=== PATIENT | female | born 1955 | race Caucasian/White ===

== ENCOUNTER 2017-08-24 13:30 | Emergency (ER) | payer OTHER, SELFPAY | END 2017-08-24 14:44 | disposition home or self-care (01) | PROVIDERS: Emergency Provider Nurse Practitioner Family; Family Provider Internal Medicine Adolescent Medicine; Visit Provider Nurse Practitioner Family | DX: J01.00 Acute maxillary sinusitis, unspecified (principal) | CPT/HCPCS: 87804; 87880; 96372; 99201 ==

== ENCOUNTER → 2018-02-11 14:05 | Outpatient (CLI) | payer OTHER, SELFPAY ==
[2018-02-11 15:32] LABS: Alanine Aminotransferase 28 U/L (12-78); Albumin Level 4.2 gm/dL (3.4-5.0); Albumin/Globulin Ratio 1.4 (1.1-1.8); Alkaline Phosphatase 60 U/L (46-116); Anion Gap 13.8 mEq/L (5-15); Aspartate Amino Transferase 13 U/L (15-37); Bilirubin,Total 0.2 mg/dL (0.2-1.0); Blood Urea Nitrogen 16 mg/dL (7-18); Calcium 9.5 mg/dL (8.5-10.1); Carbon Dioxide 29 mmol/L (21.0-32.0); Chloride 103 mmol/L (98-107); Creatinine,Serum 0.85 mg/dL (0.55-1.02); Estimated Glomerular Filt Rate 68 ml/min (>60); GFR (African American) 82 ML/MIN (>60); Potassium 4.8 mmoL/L (3.5-5.1); Sodium 141 mmol/L (136-145); Total Protein,Serum 7.2 gm/dL (6.4-8.2)
[2018-02-11 15:58] LABS: Glucose 97 mg/dL (74-106)
== END ==
PROVIDERS: Visit Provider Internal Medicine
DX: G43.009 Migraine without aura, not intractable, without status migrainosus (principal)
CPT/HCPCS: 36415; 80053

== ENCOUNTER → 2019-02-23 13:15 | Outpatient (CLI) | payer OTHER, SELFPAY | PROVIDERS: PCP Internal Medicine Adolescent Medicine; Visit Provider Specialist | DX: G47.33 Obstructive sleep apnea (adult) (pediatric) (principal) | CPT/HCPCS: 95806 ==

== ENCOUNTER → 2019-03-02 10:47 | Outpatient (CLI) | payer OTHER, SELFPAY ==
[2019-03-02 12:25] LABS: Alanine Aminotransferase 35 U/L (12-78); Albumin/Globulin Ratio 1.3 (1.1-1.8); Alkaline Phosphatase 53 U/L (46-116); Anion Gap 13.6 mEq/L (5-15); Aspartate Amino Transferase 21 U/L (15-37); Bilirubin,Total 0.2 mg/dL (0.2-1.0); Blood Urea Nitrogen 11 mg/dL (7-18); Calcium 9.3 mg/dL (8.5-10.1); Carbon Dioxide 29 mmol/L (21.0-32.0); Chloride 103 mmol/L (98-107); Estimated Glomerular Filt Rate 72 ml/min (>60); GFR (African American) 88 ML/MIN (>60); Globulin 3.1 gm/dl (1.3-3.2); Glucose 78 mg/dL (74-106); Potassium 4.6 mmoL/L (3.5-5.1); Sodium 141 mmol/L (136-145); Total Protein,Serum 7.1 gm/dL (6.4-8.2)
[2019-03-02 14:13] LABS: Basophils % 0.4 % (0.1-2.0); Eosinophils # 0.3 K/mm3 (0.0-0.4); Eosinophils % 4.8 % (0.1-12.0); Hematocrit 45.4 % (37.0-47.0); Hemoglobin 14.2 g/dL (12.2-16.2); Lymphocytes # 1.9 K/mm3 (0.7-4.5); Lymphocytes % 30.6 % (10-50); Mean Corpuscular HGB Conc 31.3 g/dL (31.8-35.4); Mean Corpuscular Hemoglobin 30.1 pg (27.0-31.2); Mean Corpuscular Volume 96.2 fl (81-99); Monocytes # 0.3 K/mm3 (0.1-1.0); Monocytes % 4.4 % (1.7-9.3); Neutrophils # 3.8 K/mm3 (1.8-7.8); Neutrophils % 59.8 % (37.0-80.0); Platelet Count 427 K/mm3 (142-424); Red Blood Count 4.72 M/mm3 (4.20-5.40); Red Cell Distribution Width 13.1 % (11.5-17.5); White Blood Count 6.3 K/mm3 (4.8-10.8)
== END ==
PROVIDERS: Visit Provider Internal Medicine
DX: G43.009 Migraine without aura, not intractable, without status migrainosus (principal)
CPT/HCPCS: 36415; 80053; 85025

== ENCOUNTER → 2019-08-15 14:15 | Outpatient (CLI) | payer OTHER, SELFPAY | PROVIDERS: Visit Provider Specialist | DX: G47.33 Obstructive sleep apnea (adult) (pediatric) (principal) | CPT/HCPCS: 95806 ==

== ENCOUNTER → 2020-03-01 08:10 | Outpatient (CLI) | payer OTHER, SELFPAY ==
--- NOTE | 2020-03-01 08:14 | MM_ITS ---
PROCEDURE: MM DIG SCREENING MAMM BI W/CAD Digital Breast Tomosynthesis Included CLINICAL INDICATION: SCREENING There is no personal or family history of breast cancer. There have been previous biopsies on each breast for benign disease. COMPARISON: PREVIOUS EXAM from 08/14/2008 MM SCREEN MAMMOGRAM BILAT from 10/22/2011 DMSB DIG MAMM-SCREEN ALAINA from 05/03/2015 TECHNIQUE: Standard CC and MLO images and 3D Tomosynthesis was obtained. R2 CAD reviewed. FINDINGS: Prominent heterogenic fibroglandular densities are seen in both breasts slightly more prominent right breast than left. There are couple of benign-appearing calcifications in each breast. There is no significant post biopsy scarring in either breast. There is no suspicious lesion and no suspicious microcalcifications. IMPRESSION: Moderate heterogenic breast density with no suspicious lesions seen BI-RAD Category: 2 Benign Finding(s) FOLLOW-UP: 1YR 1 Year Follow-up (A letter has been sent to the patient regarding results of the study.) Dictated by: Dr. Alessandro Lomas MD 03/03/2020 08:[address] Alessandro Lomas MD in [place] 03/03/2020 08:42
== END ==
PROVIDERS: PCP Internal Medicine Adolescent Medicine; Visit Provider Internal Medicine Adolescent Medicine
DX: Z12.31 Encounter for screening mammogram for malignant neoplasm of breast (principal)
CPT/HCPCS: 77063; 77067

== ENCOUNTER → 2020-03-19 08:43 | Outpatient (CLI) | payer OTHER, SELFPAY ==
--- NOTE | 2020-03-19 | XR_ITS ---
PROCEDURE: XR DEXA AXIAL SKELETON CLINICAL HISTORY: OSTEOPOROSIS COMPARISON: No exams were available for comparison FINDINGS: The right hip BMD is 0.462 with a t-score of -3.5. The left hip BMD is 0.577 with a t-score of -3.0. The lumbar spine BMD is 0.800 with a t-score of -2.2. IMPRESSION: This patient is considered osteoporotic according to the World Health Organization criteria. Fracture risk is high. Treatment is advised. Based on these results of follow-up exam is recommended in 1 year Dictated by: Dae Cooper MD 03/19/2020 20:25 Electronically signed by aDe Cooper MD in [place] 03/20/2020 11:03
== END ==
PROVIDERS: PCP Internal Medicine Adolescent Medicine; Visit Provider Internal Medicine Adolescent Medicine
DX: M81.0 Age-related osteoporosis without current pathological fracture (principal)
CPT/HCPCS: 77080

== ENCOUNTER 2020-03-29 06:44 | Day surgery (SDC) | payer OTHER, SELFPAY ==
[2020-03-29 07:42] VITALS: BMI 20.3
[2020-03-29 08:00] VITALS: BP 121/66; PULSE 67; RESP 20; TEMP 37.3; O2SAT 100
[2020-03-29 08:39] LABS: Coronavirus 19 IgG Antibody Negative (Negative); Coronavirus 19 IgM Antibody Negative (Negative)
[2020-03-29 10:53] VITALS: O2SAT 100
--- NOTE | 2020-03-29 11:09 | HMH.ANESCL ---
[facility] Anesthesia Checklist - Patient Identification Patient Identification: Arm Band, Verbal (Name & ) - Structural Data Admitted From: Home Planned Operative Procedure/s: Colonoscopy Consent for Planned Operative Procedure(s) Verified: Yes Verified Documents: Surgical Consent, History and Physical - NPO Status Verified Time NPO: 00:00 - Chart Verification Results Verified: None - Additional verifications Anesthesia Reactions: No - Airway Assessment C-Spine Mobility Assessed: Yes TMJ Mobility Assessed: Yes Dentition: Good Dentition - Neurological Assessment Level of Consciousness: Awake, Alert, Appropriate, Follows Commands Hx Seizures: No Numbness or tingling in extremities: No - Anesthesia Plan Anesthesia Risk discussed: Yes Anesthesia Plan: Verified ASA Class: III Anesthesia Type: MAC [facility] History I have reviewed the patient's past medical history: Yes Medical History: Reports:: Hypertension, Migraine Denies:: Cancer, Diabetes Mellitus Type 1, Diabetes Mellitus Type 2, Internal Pacemaker, MRSA, Seizures *Have you ever received a pneumonia vaccine?: No *Have you received a flu vaccine this season?: Yes Other Medical History: Reports: Other Comment:: LEOPOLDO Anesthesia experience/problems:: None Laterality Cases: Bilateral: Lumpectomy Other Surgeries: Yes: Colonoscopy, Sinus Surgery. No: Pacemaker Amputation: No Fractures: No - *Social History Last grade of school completed: Some college Smoking Status: Never smoker Alcohol Intake: never Alcohol Intake Frequency:: other Substance Use Type: denies use *Occupational Status:: retired Housing: house Household Members: spouse *Travel in the last 8 weeks: Inside the [facility] Family Hx:: Diabetes, Heart Attack, Stroke
[2020-03-29 11:38] VITALS: BP 78/45; PULSE 72; RESP 18; TEMP 36.6; O2SAT 100
--- NOTE | 2020-03-29 11:39 | FL_ITS ---
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 Initially, Gastrografin enema was performed. There was no evidence annular constricting lesion or contrast extravasation. The Gastrografin was then drained and barium was instilled without complication. Barium was then allowed to drain and air introduced. There are scattered diverticula within the sigmoid colon. No annular constricting lesions or fixed polypoid filling defects are evident. There is tortuosity of the sigmoid colon. The ileocecal region has an unremarkable appearance. IMPRESSION: 1. Mild sigmoid diverticulosis with tortuous sigmoid colon. 2. No annular constricting lesions or polypoid filling defects apparent. Dictated by: Dae Cooper MD 03/29/2020 15:35 Electronically signed by Dae Cooper MD in [place] 03/29/2020 15:35
--- NOTE | 2020-03-29 11:40 | HMH.SCOPE ---
- Procedure: Date: 03/29/20 Procedure Performed:: Colonoscopy Indications:: History of colon polyps Performing Provider:: Michoacano Levin MD Referring Provider:: . Sedation:: Monitored anesthesia care Procedure:: After informed consent was obtained the patient was taken to the endoscopy suite. Sedation ensued after the patient was transferred to the left lateral decubitus position. Pulse, blood pressure, and oxygen saturation were monitored throughout the procedure. Digital rectal exam revealed no significant abnormality. The colonoscope was placed in position. The entire colon was evaluated. The colonoscope was carefully removed and the patient was transferred to recovery in stable condition. Please see findings and specimens below for detail. Findings:: Bowel preparation poor (somewhat improved with copious irrigation) Hemorrhoidal tags Severe sigmoid tortuosity Patulous sigmoid colon with lack of relaxation Scattered sigmoid diverticulosis Specimens:: None Recommendations:: Barium enema ordered secondary to severe sigmoid tortuosity and limited bowel preparation. Although bowel preparation quite poor, the likelihood of admixture with barium will allow for at least some improved visualization with particular attention to the sigmoid colon. Complications:: Limited visualization secondary to poor preparation, severe sigmoid tortuosity, and lack of relaxation. Estimated blood obtained (mL): 0
[2020-03-29 11:48] VITALS: BP 100/60; PULSE 68; RESP 18; TEMP 36.6; O2SAT 99
[2020-03-29 12:03] VITALS: BP 121/68; PULSE 76; RESP 18; TEMP 36.6; O2SAT 98
== END 2020-03-29 12:03 | disposition home or self-care (01) ==
PROVIDERS: PCP Internal Medicine Adolescent Medicine; Visit Provider Surgery
PROC: 0DJD8ZZ Inspection of Lower Intestinal Tract, Via Natural or Artificial Opening Endoscopic (ICD-10-PCS; CPT 45378; principal; 2020-03-29 11:00)
DX: Z12.11 Encounter for screening for malignant neoplasm of colon (principal); K58.9 Irritable bowel syndrome, unspecified; Z86.010 Personal history of colon polyps; K64.0 First degree hemorrhoids; Q43.8 Other specified congenital malformations of intestine; K57.30 Diverticulosis of large intestine without perforation or abscess without bleeding; Z79.899 Other long term (current) drug therapy; G43.919 Migraine, unspecified, intractable, without status migrainosus
CPT/HCPCS: 45378; 74280; 86328

== ENCOUNTER → 2021-01-30 11:34 | Outpatient (CLI) | payer OTHER, SELFPAY ==
--- NOTE | 2021-01-30 11:38 | XR_ITS ---
PROCEDURE: XR KNEE RT 4V CLINICAL INDICATION: right knee pain COMPARISON: No exams were available for comparison FINDINGS: No fracture or dislocation. No lytic or blastic change. There is normal mineralization. The joint spaces are well preserved. There is minimal spurring along the posterior aspect of the patella laterally. Other findings:None. IMPRESSION: No acute finding. Minimal osteoarthritic change at the patellofemoral joint Dictated by: Dae Cooper MD 01/30/2021 12:00 Dae Cooper MD in [place] 01/30/2021 12:00
== END ==
PROVIDERS: PCP Internal Medicine Adolescent Medicine; Visit Provider Orthopaedic Surgery
DX: M25.561 Pain in right knee (principal)
CPT/HCPCS: 73564

== ENCOUNTER → 2021-02-05 08:25 | Outpatient (CLI) | payer OTHER, SELFPAY ==
--- NOTE | 2021-02-05 08:25 | MR_ITS ---
PROCEDURE: MR KNEE RT WO CON CLINICAL INDICATION: right knee pain; evaluate for meniscal tear Rt medial knee pain x4wks. No injury. Prior x-ray 01/30/21. COMPARISON: CR XR KNEE RT 4V from 01/30/2021 TECHNIQUE: Routine multiplanar multi echo sequences are performed without gadolinium enhancement. FINDINGS: No evidence of ACL or PCL tear. There is some mild thinning of the ACL of questionable clinical significance. No edematous changes are apparent. The collateral ligaments appear intact. The patellar tendon is intact. There is some increased T1 and T2 signal involving the distal aspect of the quadriceps tendon suggesting tendinosis. There is linear increased T2 signal involving the posterior horn of the lateral meniscus but does not communicate with the articular surface and does not meet the criteria for meniscal tear. There is a horizontal tear which involves the posterior horn of the medial meniscus extending to the posterior free edge and the inferior surface of the meniscus. There is some irregularity of the patellar cartilage. There is a small knee joint effusion. There are mild osteoarthritic changes involving all 3 compartments. The medial meniscus is slightly extruded medially. No bone bruise or fracture. IMPRESSION: 1. Horizontal tear involves the posterior horn of the medial meniscus 2. Mild osteoarthritic change with small knee joint effusion. 3. Thin like appearance of the ACL which could represent sequela from an old injury. No evidence of acute ACL tear. 4. Mild irregularity of the posterior surface of the patellar cartilage which could be seen with chondromalacia patella Dictated by: Dae Cooper MD 02/07/2021 07:14 Dae Cooper MD in [place] 02/07/2021 07:14
== END ==
PROVIDERS: PCP Internal Medicine Adolescent Medicine; Visit Provider Orthopaedic Surgery
DX: M25.561 Pain in right knee (principal)
CPT/HCPCS: 73721

== ENCOUNTER → 2021-03-27 09:58 | Outpatient (CLI) | payer OTHER, SELFPAY ==
--- NOTE | 2021-03-27 10:02 | MM_ITS ---
PROCEDURE INFORMATION: Exam: MG Screening 3D Mammography Exam date and time: 03/27/2021 10:02 AM Age: 66 years old Clinical indication: Encounter for screening mammogram for malignant neoplasm of breast TECHNIQUE: Imaging protocol: Screening tomosynthesis and 2D mammography including computer-aided detection (CAD) when performed. COMPARISON: 1. MG MM DIG SCREENING MAMM BI W/CAD 03/01/2020 8:31 AM 2. MG DMSB DIG MAMM-SCREEN ALAINA 05/03/2015 3:57 PM FINDINGS: MAMMOGRAPHY: Breast composition: The breast tissue is heterogeneously dense, which may obscure small masses. Mass: None. Architectural distortion: None. Calcifications: No suspicious calcifications. Asymmetric density: None. Skin thickening: None. Axillary adenopathy: None. IMPRESSION: No mammographic evidence of malignancy. Annual screening is recommended unless otherwise clinically indicated. ASSESSMENT: BI-RADS Category 1: Negative
--- NOTE | 2021-03-27 10:35 | XR_ITS ---
PROCEDURE: XR CHEST 2V CLINICAL HISTORY: surgery 04/01/21; hypertension Preop COMPARISON: No exams were available for comparison FINDINGS: The cardiomediastinal silhouette and pulmonary vascularity are within normal limits. The lungs are clear without infiltrates, suspicious nodules, or pleural effusions. No acute bony abnormalities. IMPRESSION: No acute findings. Dictated by: Dr. Alessandro Loams MD 03/27/2021 10:52 Dr. Alessandro Lomas MD in [place] 03/27/2021 10:52
[2021-03-27 11:21] LABS: Alanine Aminotransferase 25 U/L (12-78); Albumin Level 4.7 g/dl (3.5-5.0); Albumin/Globulin Ratio 1.8 (1.1-1.8); Alkaline Phosphatase 54 U/L (38-126); Anion Gap 17.5 mEq/L (5-15); Aspartate Amino Transferase 30 U/L (14-36); Bilirubin,Total 0.4 mg/dl (0.2-1.3); Blood Urea Nitrogen 10 mg/dl (7-17); Calcium 9.9 mg/dl (8.4-10.2); Carbon Dioxide 28 mmol/L (22.0-30.0); Chloride 98 mmol/L (98-107); Estimated Glomerular Filt Rate 72 ml/min (>60); GFR (African American) 87 ML/MIN (>60); Globulin 2.6 g/dL (1.3-3.2); Glucose 79 mg/dl (74-100); Potassium 4.5 mmoL/L (3.5-5.1); Sodium 139 mmol/L (136-145); Total Protein,Serum 7.3 g/dl (6.3-8.2)
[2021-03-27 12:33] LABS: Basophils # 0.1 K/mm3 (0-0.2); Eosinophils # 0.3 K/mm3 (0.0-0.4); Eosinophils % 4.3 % (0.1-12.0); Hematocrit 43.3 % (37.0-47.0); Hemoglobin 14.8 g/dL (12.2-16.2); Lymphocytes # 2.4 K/mm3 (0.7-4.5); Lymphocytes % 31.1 % (10-50); Mean Corpuscular HGB Conc 34.1 g/dL (31.8-35.4); Mean Corpuscular Hemoglobin 31.1 pg (27.0-31.2); Mean Corpuscular Volume 91.1 fl (81-99); Mean Platelet Volume 7.5 fl (7.4-10.4); Monocytes # 0.3 K/mm3 (0.1-1.0); Monocytes % 4.5 % (1.7-9.3); Neutrophils # 4.5 K/mm3 (1.8-7.8); Neutrophils % 59.2 % (37.0-80.0); Platelet Count 382 K/mm3 (142-424); Red Blood Count 4.75 M/mm3 (4.20-5.40); Red Cell Distribution Width 13.3 % (11.5-17.5); White Blood Count 7.6 K/mm3 (4.8-10.8)
== END ==
PROVIDERS: Orthopaedic Surgery; PCP Internal Medicine Adolescent Medicine; Visit Provider Internal Medicine Adolescent Medicine
DX: Z01.818 Encounter for other preprocedural examination (principal); Z12.31 Encounter for screening mammogram for malignant neoplasm of breast
CPT/HCPCS: 36415; 71046; 77063; 77067; 80053; 85025

== ENCOUNTER → 2021-03-29 14:26 | Outpatient (CLI) | payer OTHER, SELFPAY ==
--- NOTE | 2021-03-29 14:45 | ECG_ITS ---
APPROVED REPORT Exam: Resting ECG HR:83 bpm ECG Measurements Heart Rate 83 AXES MA 136 P 67 QRSd 70 QRS 75 QT 364 T 39 QTc 427 Conclusion Normal sinus rhythm Low voltage QRS Borderline ECG Electronically signed by : Vel Dc, 03/30/2021 15:18:46
== END ==
PROVIDERS: Visit Provider Orthopaedic Surgery
DX: Z01.818 Encounter for other preprocedural examination (principal); Z20.822 Contact with and (suspected) exposure to COVID-19
CPT/HCPCS: 93005; U0003

== ENCOUNTER 2021-04-01 06:00 | Day surgery (SDC) | payer OTHER, SELFPAY ==
[2021-03-26 13:40] VITALS: BMI 20.7
[2021-04-01] VITALS (11 sets, daily range): BP systolic 112–157; BP diastolic 61–87; PULSE 72–90; RESP 12–18; TEMP 36.4–43; O2SAT 92–99
--- NOTE | 2021-04-01 07:13 | HMH.ANESCL ---
[facility] Anesthesia Checklist - Patient Identification Patient Identification: Arm Band - Structural Data Admitted From: Home Planned Operative Procedure/s: Right Knee Arthroscopy, Medial Meniscectomy/Debridement Consent for Planned Operative Procedure(s) Verified: Yes Verified Documents: Surgical Consent, History and Physical - NPO Status Verified Time NPO: 00:00 - Additional verifications Anesthesia Reactions: No - Airway Assessment C-Spine Mobility Assessed: Yes (mp3) TMJ Mobility Assessed: Yes Dentition: Good Dentition - Neurological Assessment Level of Consciousness: Awake, Alert - Anesthesia Plan Anesthesia Risk discussed: Yes Anesthesia Plan: Verified ASA Class: II Anesthesia Type: General [facility] History I have reviewed the patient's past medical history: Yes Medical History: Reports:: Hypertension, Migraine Denies:: Cancer, Diabetes Mellitus Type 1, Diabetes Mellitus Type 2, Internal Pacemaker, MRSA, Seizures *Have you ever received a pneumonia vaccine?: No *Have you received a flu vaccine this season?: Yes Other Medical History: Reports: Other (LEOPOLDO) Anesthesia experience/problems:: nac Laterality Cases: Bilateral: Lumpectomy Other Surgeries: Yes: Colonoscopy, Sinus Surgery. No: Pacemaker Amputation: No Fractures: No - *Social History Last grade of school completed: Advanced degree Smoking Status: Former smoker Alcohol Intake: never Alcohol Intake Frequency:: other Substance Use Type: denies use *Occupational Status:: retired Housing: house Household Members: spouse *Travel in the last 8 weeks: None Family Hx:: Cancer, Diabetes, Heart Attack, Hyperlipidemia, Hypertension, Stroke, Thyroid Disorder
--- NOTE | 2021-04-01 11:03 | P.PN_ITS ---
[facility] Anesthesia Record Part I Intake, IV Amount: 1,800 Estimated blood loss (mL): 0 Urine output (mL): 0 Blood Pressure: 140/68 SaO2: 92 Pulse Rate: 81 Respiratory Rate: 12 Temperature: 98.9 F Patient is:: Drowsy, Stable Stable to PACU at:: 11:00
--- NOTE | 2021-04-01 11:52 | HMH.OPNOTE ---
Date of procedure: 04/01/21 Pre-op Diagnosis:: 1. Medial meniscal tear, right knee 2. Osteoarthritis, right knee Post-op Diagnosis:: 1. Degenerative tear of medial meniscus, right knee 2. Degenerative tear of lateral meniscus, right knee 3. Osteoarthritis, right knee 4. Pathological medial plica, right knee Procedure performed:: 1. Examination of right knee under anesthesia 2. Partial medial meniscectomy, right knee 3. Partial lateral meniscectomy, right knee 4. Chondroplasty, right knee 5. Resection of medial plica, right knee Surgeon:: Kike Jackson MD DRY DIP WORKER:: [place] Anesthesia: LMA Estimated blood loss (mL): 5 Clinical Note:: The patient is a 66-year-old female with chronic right knee pain unresponsive to conservative management and evidence of a complex medial meniscal tear and early arthritic changes on imaging. Patients symptoms and clinical signs are consistent with the above diagnosis. Resection of the torn medial meniscus, chondroplasty and debridement is indicated to relieve the pain and improve function of the knee. Please refer to my office notes for full details. Operative findings:: Examination of the right knee under anesthesia, showed a stable knee joint. There is moderate knee joint effusion. Knee range of motion is from (-)5-140? of flexion. Operative findings showed diffuse grade 2-3 degenerative changes over the medial and patellofemoral compartments. There was more advanced focal grade 3-4 sales and service change leader the weightbearing area of the medial femoral condyle. The articular surfaces over the lateral compartment were relatively well-preserved. A fairly large thickened and hyperemic medial plica was noted and its corresponding abrasion area on the medial femoral condyle noted as well. The medial meniscus had a complex degenerative tear involving the body and posterior horn. In addition there was also degenerative tear of the body and anterior horn of the lateral meniscus. The anterior cruciate ligament and posterior cruciate ligaments were intact. No loose bodies were noted. Mild synovitis was noted in the knee. Operative note:: On the day of the procedure the patient was met in the preoperative area and positively identified. A physical examination was performed and documented. The operative site and side was marked and initialed by me. I again discussed the diagnosis, management options including both nonsurgical and surgical. I discussed the proposed surgical procedure, risks and benefits and alternatives in detail. The complications discussed include but are not limited to infection, injury to nerves and blood vessels, injury to the ligaments and tendons, knee stiffness, arthrofibrosis, incomplete relief, incomplete functional recovery, DVT, PE, CRPS, complications related to anesthesia including heart attack, stroke and even . I have also discussed about the likely need for further surgery in future. I told her that there were no guarantees with surgery; she could be no better or even worse. We also discussed the postoperative recovery and rehabilitation protocol. I believe the patient to be well informed with regard to the proposed surgery. I told her that it would take few months for full recovery of the knee after surgery. She expressed a full understanding and wished to proceed with the planned surgery. Patient understood the risks, agreed to proceed with surgery and no guarantees or assurances were given or implied. Patient was brought to the operating room and placed supine on the operating table. All the bony prominences were appropriately padded. A general anesthesia was administered by the lot technician. A well-padded tourniquet cuff was placed over the right upper thigh. Examination of the right knee under anesthesia was performed. A moderate amount of knee effusion was noted. Knee range of motion was 5 degrees of hyperextension to 140 degrees of flexion. Knee joint is noted to be ligamentously stable. The right k
--- NOTE | 2021-04-02 08:46 | P.PN_ITS ---
[facility] Anesthesia Record Part II Discharge Time: 11:40 Destination: Surgical Day Care (OP Surgery) PACU nurse assessment reviewed?: Yes Patient Condition:: Good Anesthesia Complications:: None Swallowing reflex intact?: Yes Cyanosis?: No Blood Pressure: 154/86 Pulse Rate: 82 Temperature: 97.0 F Mental Status: Alert & Oriented Pain level:: 0 Nausea and/or vomitting:: None Intake, IV Amount: 0
[2021-04-02 08:47] VITALS: BP 154/86; PULSE 82; TEMP 36.1
== END 2021-04-01 12:12 | disposition home or self-care (01) ==
LOC: OR 06:01
PROVIDERS: PCP Internal Medicine Adolescent Medicine; Visit Provider Orthopaedic Surgery
PROC: (CPT 29870; principal; 2021-04-01 07:30)
DX: M23.221 Derangement of posterior horn of medial meniscus due to old tear or injury, right knee (principal); I10 Essential (primary) hypertension; G43.909 Migraine, unspecified, not intractable, without status migrainosus; Z79.899 Other long term (current) drug therapy; M23.261 Derangement of other lateral meniscus due to old tear or injury, right knee; M67.51 Plica syndrome, right knee; M17.11 Unilateral primary osteoarthritis, right knee
CPT/HCPCS: 29881; 96374; J2405

== ENCOUNTER 2021-07-18 13:00 | Outpatient (RCR) | payer MEDICARE, OTHER, BC, SELFPAY ==
--- NOTE | 2021-04-23 15:30 | HMH.PTOPEV ---
PT Outpatient Evaluation Rehab PT Outpatient Evaluation Start: 04/23/21 14:31 Freq: Status: Active Protocol: Document 04/23/21 14:31 SOCRATES (Rec: 04/23/21 15:30 SOCRATES [id number]) Electronically Signed By Jeovanny Kowalski, PT 04/23/21 14:31 Outpatient Therapy Subjective History Subjective History Pt presents s/p right knee partial medial mensicectomy, lateral chondroplasty, medial plica resection on 04/01/21. Pt reports lingering post-op swelling, pain, and stiffness, however, reports 'I've been doing some exercises on my own to get it moving'. Pt reports D/C from surgeon, and PMH of migraine OLIVEROS's Chief Complaint Pain,Stiff,Swelling,Weakness Symptom Type Ache,Dull Symptoms Relieved By Rest/Positioning,Ice Symptoms Aggravated By Standing,Physical Activity, Walking Prior Functional Limitations Housework,Standing,Walking Current Functional Limitations Housework,Standing,Walking, Stairs Symptom Description Constant but Variable Level of pain today (0-10) 2 Pain scale - at its best (0-10) 2 Pain scale - at its worst (0-10) 8 Hip/Knee Eval Gait Observation General Gait Pattern Observation Antalgic Gait Assistive Device Assistive Devices None / NA Palpation Tenderness right Knee Palpation Finding Tenderness Knee Palpation Overall Comment 3/4 medial jt line, pes anserine 2/4 lateral jt line MMT Hip Flexion Strength Grade 4 Good Hip Abduction Strength Grade 4- Good- Hip Adduction Strength Grade 3+ Fair+ Hip Extension Strength Grade 4- Good- Hip External Rotation Strength Grade 4- Good- Hip Internal Rotation Strength Grade 4- Good- Knee Extension Strength Grade 4 Good Knee Flexion Strength Grade 4- Good- ROM Knee Flexion Active Range of Motion ( 2-137 degrees) Knee ROM Limitations Soft Tissue Tightness,Pain Effusion joint effusion knee exam standard right Mid - Patellar Circumerential Measure ( 34 cm) Outpatient Therapy Assessment Impairments Problems/Impairmments Palpation Tenderness,Impaired Range of Motion,Impaired Strength,Impaired Gait Pattern ,Impaired Walking,Impaired Standing,Impaired Household Care,Impaired Stair Climbing,
--- NOTE | 2021-05-21 13:44 | HMH.RHREAS ---
Rehab Reassessment Rehab OP Re-assessment Start: 05/21/21 13:15 Freq: Status: Active Protocol: Document 05/21/21 13:21 SOCRATES (Rec: 05/21/21 13:43 SOCRATES [id number]) Electronically Signed By Jeovanny Kowalski, PT 05/21/21 13:21 Rehab Re-assessment Subjective Subjective Pt reports 0-2/10 right knee pain w/activity on VAS, and feels 70-75% better overall since I eval. Objective Objective Notes AROM: RIGHT KNEE FLX 0-135 TTP: RIGHT KNEE MEDIAL JT LINE 2/4, POSTERIOR JT LINE 1-2/4 MMT: RIGHT KNEE FLX 4-4+/5, KNEE EXT 4+-5/5, R HIP ABD 4-4 +/5, R HIP FLX 4+-5/5, R HIP IR,ER 4/5 GAIT: WFL LEVEL TERRAIN W/O AD Assessment Progress Assessment Progressing as Expected Assessment Notes IMPROVED ROM, STRENGTH, TTP, AND GAIT Patient goals met STG'S 05/17 LTG'S 12/15 Goals Not Met STG'S 09/16, LTG'S 02/14 Plan Plan Pt to cont. w/skilled P.T. to [place] further improvements in AROM, strength, TTP, and gait to allow for optimal function. Frequency of Therapy 2-3x/wk Duration of therapy 3-4wks Time and Billing Re-Eval Time 15 Re-Eval Billing Units 0 PHYSICIAN CERTIFICATION: I certify the specified therapy services for Radha Rodriguez are required, authorized, and reviewed every 30 days.
--- NOTE | 2021-06-21 16:18 | HMH.RHREAS ---
Rehab Reassessment Rehab OP Re-assessment Start: 05/21/21 13:15 Freq: Status: Active Protocol: Document 06/21/21 16:10 SOCRATES (Rec: 06/21/21 16:17 SOCRATES [id number]) Electronically Signed By Jeovanny Kowalski, PT 06/21/21 16:10 Rehab Re-assessment Subjective Subjective Pt reports 0-2/10 right knee pain w/activity on VAS, and feels 80% better overall since I eval, HOWEVER, reports moderate difficulty w/ ambulation down steps d/t Right knee pain Objective Objective Notes AROM: RIGHT KNEE FLX 0-130 TTP: RIGHT KNEE MEDIAL JT LINE 1-2/4, POSTERIOR JT LINE 0-1/ 4 MMT: RIGHT KNEE FLX 4-4+/5, KNEE EXT 4+-5/5, R HIP ABD 4-4 +/5, R HIP FLX 4+-5/5, R HIP IR,ER 4-4+/5 GAIT: WFL LEVEL TERRAIN W/O AD Assessment Progress Assessment Progressing as Expected Assessment Notes improved strenght and TTP Patient goals met STG'S 05/17 LTG'S 02/14 Goals Not Met LTG'S 12/15 Plan Plan Pt to cont. w/skilled P.T. to make further improvements in AROM, strength, TTP, and gait (with emphasis on right quad eccentric control) to allow for optimal function. Frequency of Therapy 2-3x/wk Duration of therapy 2-4wks Time and Billing Re-Eval Time 15 Re-Eval Billing Units 0 PHYSICIAN CERTIFICATION: I certify the specified therapy services for Radha Rodriguez are required, authorized, and reviewed every 30 days.
== END 2021-07-18 13:05 | disposition home or self-care (01) ==
LOC: PT 13:00
PROVIDERS: PCP Internal Medicine Adolescent Medicine; Visit Provider Orthopaedic Surgery
DX: M17.11 Unilateral primary osteoarthritis, right knee (principal); M23.311 Other meniscus derangements, anterior horn of medial meniscus, right knee; M23.251 Derangement of posterior horn of lateral meniscus due to old tear or injury, right knee
CPT/HCPCS: 97010; 97014; 97016; 97033; 97035; 97110; 97163; 97164; G0283

== ENCOUNTER → 2021-12-02 13:40 | Outpatient (CLI) | payer MEDICARE, BC, SELFPAY | PROVIDERS: PCP Internal Medicine Adolescent Medicine; Visit Provider Specialist | DX: G47.33 Obstructive sleep apnea (adult) (pediatric) (principal); R06.83 Snoring; G43.719 Chronic migraine without aura, intractable, without status migrainosus | CPT/HCPCS: G0399 ==

== ENCOUNTER → 2021-12-10 09:03 | Outpatient (CLI) | payer MEDICARE, BC, SELFPAY ==
--- NOTE | 2021-12-10 09:08 | XR_ITS ---
FINAL REPORT TECHNIQUE: Bone densitometry calculations of the lumbar spine and left hip were obtained. CLINICAL HISTORY: osteoporosis FINDINGS: Using L1-4, the bone mineral density of the spine is 0.816 g/cm2, corresponding to T-score of -2.1. Using the right hip, the bone mineral density of the femoral neck is 0.454 g/cm2, corresponding to a T-score of -3.6. NOTE: T-score: Standard deviation compared with peak bone mass of young adult mean. *Following the recommendations of the International Society of Bone Densitometry, classification of hip BMD is based on the lower of two T-scores; total hip or femoral neck. IMPRESSION: Osteoporosis: Lowest T-score is at or below -2.5. This patient's T-score meets the World Health Organization criteria for osteoporosis. Reviewed, Interpreted and Dictated by Wil Kasper III, MD Transcribed by Gianna Arzola Authenticated by Wil Kasper III, MD on 12/10/2021 11:29:59 AM [facility]
== END ==
PROVIDERS: PCP Internal Medicine Adolescent Medicine; Visit Provider Internal Medicine Adolescent Medicine
DX: M81.0 Age-related osteoporosis without current pathological fracture (principal)
CPT/HCPCS: 77080

== ENCOUNTER 2022-01-13 09:28 | Emergency (ER) | payer MEDICARE, BC, SELFPAY ==
[2022-01-13 09:45] VITALS: BP 123/71; PULSE 72; RESP 18; TEMP 36.7; O2SAT 97; BMI 21.2
[2022-01-13 10:17] VITALS: BP 123/71; PULSE 72; RESP 18; TEMP 36.7; O2SAT 97
--- NOTE | 2022-01-13 10:26 | HMH.EDUTC ---
[facility] Disposition Clinical Impression: Eye problem Disposition: Home, Self-Care Condition on Discharge: Good Additional Instructions: Make sure to follow up at [facility] today at 1250 for complete eye exam and further treatment Return if needed Straight to ER if any life threatening symptoms Referrals: Vel Dc MD [Primary Care Provider] - As needed [facility] [Other] - 01/13/22 12:50 pm Medical Decision Making - Flavio Inquiry Pt receiving controlled substance: No Flavio was queried for this patient: No Vital Signs: 01/13/22 09:45 01/13/22 10:17 Temperature 98.0 F 98.0 F Temperature Source Oral Pulse Rate 72 Pulse Rate [Right Brachial] 72 Respiratory Rate 18 18 Blood Pressure 123/71 Blood Pressure [Right Arm] 123/71 Blood Pressure Mean [Right Arm] 88 Blood Pressure Source [Right Arm] Automatic Cuff Blood Pressure Position [Right Arm] Sitting 02 Sat by Pulse Oximetry 97 Oxygen Delivery Method Room Air - Physician Consults Physician Consulted: [facility] Time: 10:31 Reason -: Opthalmology Eval/Care Comment/Response: Spoke with [facility] and informed them of patient complaints and they advised they would see her in the office today at 1250 [facility] HPI - General Stated complaint: eye pain/redness Time Seen by Provider: 01/13/22 10:26 Mode of Arrival: Ambulatory Source of Information: Patient Limitations: No Limitations Description of Symptoms (Recalled from Triage Doc. by RN): PATIENT C/O REDNESS AND BURNING TO BILATERAL EYES SINCE YESTERDAY, AND STATES HER VISION IS FUZZY . NO KNOWN INJURY HEENT Symptoms (Recalled from RN notes): Yes Resp Symptoms (Recalled from RN notes): No Skin Symptoms (Recalled from RN notes): No MS Symptoms (Recalled from RN notes): No Functional Status (Recalled from RN notes): WNL - History of Present Illness Provider Complaint: Patient state that she tried to put her contacts in yesterday and her eyes started burning and watering States that since then it feels like there is sandpaper in her eyes States that they are red and watering and feel itchy and irritated States she has been having trouble seeing and everything looks fuzzy so this morning she came in to get checked - Related Data Home Medications Medication Instructions Recorded Confirmed fluticasone propionate 50 50 mcg INTRANASAL DAILY #16 g 08/15/19 12/12/21 mcg/actuation nasal spray,suspension ibandronate 150 mg tablet 150 mg PO NEEDED PRN #1 tab 08/15/19 12/12/21 lamotrigine 150 mg tablet 150 mg PO DAILY #90 tab 08/15/19 12/12/21 methocarbamol 500 mg tablet 500 mg PO DAILY #40 tab 08/15/19 12/12/21 metoprolol tartrate 50 mg tablet 50 mg PO DAILY #90 tab 08/15/19 12/12/21 rizatriptan 10 mg tablet 10 mg PO DAILYP PRN #12 tab 08/15/19 12/12/21 venlafaxine 75 mg capsule,extended 75 mg PO DAILY #90 cap 08/15/19 12/12/21 release 24 hr Lidocaine [Lidoderm 5% transdermal 1 each TP Q24H 03/26/21 12/12/21 patch] pseudoephedrine HCl 30 mg tablet 30 mg PO Q4-6H PRN 04/23/21 12/12/21 atorvastatin 40 mg tablet 40 mg PO HS tab 11/27/21 12/12/21 levetiracetam 500 mg tablet 500 mg PO DAILY tab 11/27/21 12/12/21 atogepant 60 mg tablet 60 mg PO DAILY 12/12/21 12/12/21 Allergies Allergy/AdvReac Type Severity Reaction Status Date / Time topiramate [From Topamax] AdvReac Mild Verified 12/12/21 11:01 - Worker's Comp Is this a Worker's Comp case?: No [facility] History - Hepatitis A Screen Attestation statement:: This patient has been screened for Hepatitis A risk factors. I have reviewed the patient's past medical history: Yes Medical History: Reports:: Hypertension, Migraine, Osteoporosis Denies:: Cancer, Diabetes Mellitus Type 1, Diabetes Mellitus Type 2, Internal Pacemaker, MRSA, Seizures Other Medical History: Reports: Arthritis, Osteoporosis, Other Comment: LEOPOLDO Laterality Cases: Right: Arthroscopy Knee, Bilateral: Lumpectomy, Tonsille
== END 2022-01-13 10:44 | disposition home or self-care (01) ==
PROVIDERS: Emergency Provider Nurse Practitioner; PCP Internal Medicine Adolescent Medicine
DX: H57.13 Ocular pain, bilateral; H53.8 Other visual disturbances; Z88.8 Allergy status to other drugs, medicaments and biological substances; I10 Essential (primary) hypertension; G43.909 Migraine, unspecified, not intractable, without status migrainosus; M81.0 Age-related osteoporosis without current pathological fracture; G47.33 Obstructive sleep apnea (adult) (pediatric); Z80.9 Family history of malignant neoplasm, unspecified; Z82.49 Family history of ischemic heart disease and other diseases of the circulatory system; Z83.438 Family history of other disorder of lipoprotein metabolism and other lipidemia; Z83.49 Family history of other endocrine, nutritional and metabolic diseases; Z82.3 Family history of stroke
CPT/HCPCS: 99281

== ENCOUNTER → 2022-01-22 11:33 | Outpatient (CLI) | payer MEDICARE, BC, SELFPAY | PROVIDERS: PCP Internal Medicine Adolescent Medicine; Visit Provider Specialist | DX: G47.33 Obstructive sleep apnea (adult) (pediatric) (principal); R06.83 Snoring | CPT/HCPCS: G0399 ==

== ENCOUNTER → 2023-01-19 10:53 | Outpatient (CLI) | payer MEDICARE, BC, SELFPAY ==
--- NOTE | 2023-01-19 10:57 | MM_ITS ---
PROCEDURE INFORMATION: Exam: MG Bilateral Screening 3D Mammography Exam date and time: 01/19/2023 10:55 AM Age: 67 years old Clinical indication: Screening examination TECHNIQUE: Imaging protocol: Bilateral Screening tomosynthesis and 2D mammography including computer-aided detection (CAD) when performed. COMPARISON: 1. MG MM DIG SCREENING MAMM BI W/CAD 03/27/2021 10:00 AM 2. MG MM DIG SCREENING MAMM BI W/CAD 03/01/2020 8:31 AM FINDINGS: MAMMOGRAPHY: Breast composition: The breasts are heterogeneously dense, which may obscure small masses. Mass: None. Architectural distortion: None. Calcifications: No suspicious calcifications. Asymmetric density: None. Skin thickening: None. Axillary adenopathy: None. IMPRESSION: No mammographic evidence of malignancy. Annual screening is recommended unless otherwise clinically indicated. ASSESSMENT: BI-RADS Category 1: Negative
== END ==
PROVIDERS: PCP Internal Medicine Adolescent Medicine; Visit Provider Internal Medicine Adolescent Medicine
DX: Z12.31 Encounter for screening mammogram for malignant neoplasm of breast (principal)
CPT/HCPCS: 77063; 77067

== ENCOUNTER 2023-03-10 10:53 | Emergency (ER) | payer MEDICARE, BC, SELFPAY ==
[2023-03-10 10:54] VITALS: BP 129/73; PULSE 63; RESP 18; TEMP 36.9; O2SAT 98; BMI 21.1
--- NOTE | 2023-03-10 11:16 | EXP.UTC ---
Discharge Plan Disposition Patient Disposition: Home, Self-Care Condition: Good Prescriptions Prescriptions: New amoxicillin 500 mg capsule 500 mg PO Q8H 7 Days Qty: 21 0RF No Action pseudoephedrine HCl [Sudafed] 30 mg tablet 30 mg PO Q4-6H PRN Rx Instructions: DNExceed 4 doses/24h Ubrelvy 100 mg tablet 100 mg PO PRN magnesium chloride 64 mg tablet extended release 64 mg PO DAILY biotin 10,000 mcg capsule PO DAILY diphenhydramine HCl [Benadryl] 25 mg capsule 25 mg PO HS PRN multivitamin Tablet 1 tab PO DAILY cetirizine [Zyrtec] 10 mg tablet 10 mg PO DAILY rizatriptan 10 mg tablet 10 mg PO DAILYP PRN (Reason: .) Qty: 12 fluticasone propionate 50 mcg/actuation spray,suspension 50 mcg INTRANASAL DAILY Qty: 16 methocarbamol 500 mg tablet 500 mg PO DAILY Qty: 40 metoprolol tartrate 50 mg tablet 50 mg PO DAILY Qty: 90 venlafaxine 75 mg capsule,extended release 24hr 75 mg PO DAILY Qty: 90 lamotrigine 150 mg tablet 150 mg PO DAILY Qty: 90 atorvastatin 40 mg tablet 40 mg PO HS levetiracetam 500 mg tablet 250 mg PO BID Qulipta 60 mg tablet 60 mg PO DAILY alendronate 70 mg tablet 70 mg PO WEEKLY Patient Comments: TAKE ONE TABLET BY MOUTH ONCE a WEEK omeprazole magnesium 20 mg tablet,delayed release (DR/EC) 20 mg PO DAILY lidocaine 1 EACH adhesive patch,medicated 1 each TP Q24H Referrals Follow up/Referrals: Vel Dc MD [Primary Care Provider] - See instructions Activity Restrictions/Add. Instructions Additional Instructions/Restrictions: Use dental balls for pain as you was instructed in the [facility] today Take oral Amoxicillin as prescribed Follow up with your Dentist as soon as possible for furter evaluation and treatment Return if needed Clinical Impressions Clinical Impression: Dental infection Instructions Patient Instructions: DI for Dental Pain, DI for Tooth Abscess, Tooth Abscess Discharge ED Provider: Brie Tavarez [facility] [place] General Stated complaint: LT side mouth/tooth pain Mode of Arrival: Ambulatory Source of Information: Patient Limitations: No Limitations Time Seen by Provider: 03/10/23 11:17 Description of Symptoms (Recalled from Triage Doc. by RN): Patient reports sensitivity in the left upper an lower tooth and face up to eye since last night. HEENT Symptoms (Recalled from RN notes): Yes Resp Symptoms (Recalled from RN notes): No Skin Symptoms (Recalled from RN notes): No MS Symptoms (Recalled from RN notes): No Functional Status (Recalled from RN notes): wnl History of Present Illness Provider Complaint: Patient states that she has had a cracked tooth on her left lower for awhile now and it hasnt bothered her but last night it started hurting States that it hurts in her left jaw area and goes up the side of her face and feels like it is worse when something touches it and looking red around her gums Related Data Home Medications Medication Instructions Recorded Confirmed fluticasone propionate 50 50 mcg intranasal DAILY allergies 08/15/19 06/05/22 mcg/actuation nasal #16 grams spray,suspension lamotrigine 150 mg tablet 150 mg PO DAILY migraines #90 tabs 08/15/19 06/05/22 methocarbamol 500 mg tablet 500 mg PO DAILY muscle relaxer #40 08/15/19 06/05/22 tabs metoprolol tartrate 50 mg tablet 50 mg PO DAILY bp #90 tabs 08/15/19 06/05/22 rizatriptan 10 mg tablet 10 mg PO DAILYP PRN . #12 tabs 08/15/19 06/05/22 venlafaxine 75 mg capsule,extended 75 mg PO DAILY migraines #90 caps 08/15/19 06/05/22 release 24 hr lidocaine 5 % topical patch 1 each topical Q24H migraines 03/26/21 06/05/22 pseudoephedrine HCl 30 mg tablet 30 mg PO Q4-6H PRN 04/23/21 06/05/22 (Sudafed) atorvastatin 40 mg tablet 40 mg PO HS 11/27/21 06/05/22 atogepant 60 mg tablet (Qulipta) 60 mg PO DAILY 12/12/21 06/05/22 alendronate 70 mg tablet 70 mg PO WEEKLY 02/06
[2023-03-10 11:38] VITALS: BP 129/73; PULSE 63; RESP 18; TEMP 36.9; O2SAT 98
== END 2023-03-10 11:39 | disposition home or self-care (01) ==
PROVIDERS: Emergency Provider Nurse Practitioner; PCP Internal Medicine Adolescent Medicine
DX: K04.7 Periapical abscess without sinus (principal)
CPT/HCPCS: 99212; 99214; G0463

== ENCOUNTER 2024-02-02 13:15 | Outpatient (CLI) | payer MEDICARE, BC, SELFPAY ==
--- NOTE | 2024-02-02 13:22 | MM_ITS ---
PROCEDURE INFORMATION: Exam: MG Bilateral Screening 3D Mammography Exam date and time: 02/02/2024 1:08 PM Age: 68 years old Clinical indication: Screening. No family history of breast cancer. TECHNIQUE: Imaging protocol: Bilateral Screening tomosynthesis and 2D mammography including computer-aided detection (CAD) when performed. COMPARISON: 1. MG MM DIG SCREENING MAMM BI W/CAD 01/19/2023 10:55 AM 2. MG MM DIG SCREENING MAMM BI W/CAD 03/27/2021 10:00 AM 3. MG MM DIG SCREENING MAMM BI W/CAD 03/01/2020 8:31 AM 4. MG DMSB DIG MAMM-SCREEN ALAINA 05/03/2015 3:57 PM FINDINGS: MAMMOGRAPHY: Breast composition: The breasts are heterogeneously dense, which may obscure small masses. Mass: No suspicious mass. Architectural distortion: None. Calcifications: No suspicious calcifications. Asymmetric density: None. Skin thickening: None. Axillary adenopathy: None. IMPRESSION: No mammographic evidence of malignancy. Annual screening is recommended unless otherwise clinically indicated. ASSESSMENT: BI-RADS Category 1: Negative
== END 2024-02-02 23:59 | disposition home or self-care (01) ==
LOC: RAD 13:16
PROVIDERS: PCP Internal Medicine Adolescent Medicine; Visit Provider Internal Medicine Adolescent Medicine
DX: Z12.31 Encounter for screening mammogram for malignant neoplasm of breast (principal)
CPT/HCPCS: 77063; 77067